=== PATIENT | male | born 1945 | race Caucasian/White ===

== ENCOUNTER → 2017-08-12 12:41 | Outpatient (CLI) | payer OTHER, SELFPAY ==
[2017-08-12 03:55] VITALS: PULSE 58; PULSE 67
--- NOTE | 2017-08-12 14:30 | XR_ITS ---
XR chest 2V HISTORY: ITS.REASON: LUNG NODULES ORDERING PHYSICIAN: Gamaliel Metzger PATIENT AGE: 71 years COMPARISON: None available FINDINGS: The cardiomediastinal silhouette and pulmonary vascularity are within normal limits. The lung quesada are well expanded and appear clear of infiltrate. There are multiple small partially calcified nodules in right lower lobe and possibly couple of similar nodules left lower lobe. There are partially calcified hilar nodes bilaterally. There is mild scalloping of the right hemidiaphragm. There is no pleural fluid.. No acute bony abnormalities. IMPRESSION: Evidence of old granulomatous disease, no acute chest pathology noted
== END ==
PROVIDERS: Visit Provider Orthopaedic Surgery
DX: R91.8 Other nonspecific abnormal finding of lung field (principal)
CPT/HCPCS: 71046; 94060; 94640; 94726; 94729